=== PATIENT | female | born 1975 | race Caucasian/White ===

== ENCOUNTER 2016-10-23 20:20 | Emergency (ER) | payer OTHER ==
[2016-10-23 20:32] VITALS: RESP 20; O2SAT 93
[2016-10-23] MEDS ORDERED: IPRATROPIUM/ALBUTEROL 3 ML DEYVIAL ONE (21:09)
[2016-10-23] MEDS ORDERED: IPRATROPIUM/ALBUTEROL 3 ML DEYVIAL IH ONE ×2 (21:10→21:45)
--- NOTE | 2016-10-23 21:35 | EDPHY ---
H & P Stated Complaint: SOB, FEELS LIKE BRONCHITIS, S/S SINCE SUN Time Seen by Provider: 10/23/16 21:34 HPI/ROS: CHIEF COMPLAINT: "I think I have bronchitis" HISTORY OF PRESENT ILLNESS: 41-year-old female complaint 5 days of nonproductive cough, wheezing, chest fullness. No syncope or near syncope. No nausea or vomiting. No peripheral edema. No abdominal pain. No fever or chills. REVIEW OF SYSTEMS: A ten point review of systems was performed and is negative with the exception of the items mentioned in the HPI PAST MEDICAL & SURGICAL HISTORY: Diabetes. Hypertension. . SOCIAL HISTORY: nonsmoker PHYSICAL EXAM (Prior to examination, patient consented to physical exam, hands were washed and my usual and customary physical exam procedures followed) 1) GENERAL: Well-developed, well-nourished, alert and oriented. Appears nontoxic. 2) HEAD: Normocephalic, atraumatic 3) HEENT: Pupils equal, round, reactive to light bilaterally. Sclera anicteric. Nasopharynx: Congestion. Ears bilaterally with normal tympanic membranes. 4) NECK: Full range of motion, no meningeal signs. 5) LUNGS: Bilateral end-expiratory wheezes with rales. 6) HEART: Regular rate and rhythm, no murmur, no heave, no gallop. 7) ABDOMEN: No guarding, no rebound, no focal tenderness, 8) MUSCULOSKELETAL: No peripheral edema or discoloration. 9) BACK: No CVA tenderness,. 10) SKIN: No rash, no petechiae. 11) Psychiatric: Patient is oriented X 3, there is no agitation. DIFFERENTIAL DIAGNOSIS: [ in no particular including but not limited to bronchitis, pneumonia, pulmonary embolus, NE - Personal History LMP (Females 10-55): Now Current Tetanus/Diphtheria Vaccine: Yes - Medical/Surgical History Hx Asthma: No Hx Chronic Respiratory Disease: No Hx Diabetes: Yes Hx Cardiac Disease: No Hx Renal Disease: No Hx Cirrhosis: No Hx Alcoholism: No Hx HIV/AIDS: No Hx Splenectomy or Spleen Trauma: No Other PMH: DIABETES, C-SECT X3, HTN - Social History Smoking Status: Never smoked Constitutional: Initial Vital Signs Temperature (C) 36.9 C 10/23/16 20:29 Heart Rate 100 10/23/16 20:29 Respiratory Rate 20 10/23/16 20:29 Blood Pressure 137/83 H 10/23/16 20:29 O2 Sat (%) 93 10/23/16 20:29 O2 Delivery Mode Room Air Allergies/Adverse Reactions: No Known Allergies Allergy (Unverified 10/23/16 20:28) Home Medications: Medication Instructions Recorded JOSEFINA-D 12 HOUR TABLET 10/23/16 AZITHROMYCIN [Z-PACK] 500 mg PO DAILY #1 packet 10/23/16 Albuterol [Proventil Inhaler HFA 1 - 2 puffs IH Q4PRN PRN #1 mdi 10/23/16 (*)] Benzonatate [Tessalon Pearles (RX)] 200 mg PO TID PRN #15 cap 10/23/16 Flonase Nasal [place] 10/23/16 Lantus 100 UNITS/ML (*) 10/23/16 Losartan-Hctz 100-25 mg Tab 10/23/16 Metformin HCl 10/23/16 Novolog Flexpen 10/23/16 Medical Decision Making - Diagnostics Imaging Results: Imaging Impressions Chest X-Ray 10/23/16 21:38 Impression: Mild central bronchitis, otherwise negative chest. Images reviewed by myself ED Course/Re-evaluation: I think that pulmonary embolus, NE, less than likely in this patient at this time in the presence of of coughing, wheezing and rales on exam. Patient was re -evaluated with serial exams. After DuoNeb x2 she is feeling significant improvement in symptoms. She would like to be discharged. We discussed her imaging results. - Data Points Medications Given: Discontinued Medications Albuterol/Ipratropium (Duoneb) 3 ml IH EDNOW ONE Stop: 10/23/16 21:11 Last Admin: 10/23/16 21:18 Dose: 3 ml Departure - Departure Disposition: Home, Routine, Self-Care Clinical Impression: Bronchitis Condition: Good Instructions: Acute Bronchitis (ED) Additional Instructions: Return to the emergency department immediately for change in breathing habits, change in voice, change in swallowing habits, change in mental status, or any other symptoms that concern you. Referrals: SOLOMON QUINTANILLA [Primary Care Provider] - 2-3 days, call for appt. Stand Alone Forms: Work Excuse Prescriptions: Albuterol [Proventil Inhaler HFA (*)] 1 - 2 puffs IH Q4PRN PRN #1 mdi PRN Reason: Cough, Moderate AZITHROMYCIN [Z-PACK] 500 mg PO DAILY #1 packet Benzonatate [Tessalon Pearles (RX)] 200 mg PO TID PRN #15 cap PRN Reason: Cough, Moderate
[2016-10-23 22:59] VITALS: BP 144/78; PULSE 103; TEMP 98.2
== END 2016-10-23 22:59 | disposition home or self-care (01) ==
DX: J20.9 Acute bronchitis, unspecified (principal); E11.9 Type 2 diabetes mellitus without complications; I10 Essential (primary) hypertension; Z79.4 Long term (current) use of insulin; Z79.84 Long term (current) use of oral hypoglycemic drugs